=== PATIENT | male | born 1945 | race Caucasian/White ===

== ENCOUNTER 2017-09-24 15:11 | Observation (INO) ==
[2017-09-24] MEDS ORDERED: 0.9 % Sodium Chloride 1,000 ML IVC ONE (15:16)
--- NOTE | 2017-09-24 15:18 | Emergency Department Note ---
Disposition Clinical Impression: Weakness generalized, Near syncope Disposition: Admitted As Inpatient Condition: Fair Syncope HPI - General Chief Complaint: ED Nausea/Vomiting/Diarrhea Stated Complaint: Became Diaphoretic, weak, vomiting Time Seen by Provider: 09/24/17 15:16 Source: patient, EMS Mode of arrival: EMS Limitations: no limitations Nursing Notes Reviewed: Yes Vital Signs Reviewed: Yes - History of Present Illness HPI Narrative: Patient states she had a right shoulder surgery on about September 02. 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 He states he had a feeling of generalized weakness, sweating and then 3 episodes of vomiting with nausea. He felt like he is given a pass out and he was taken to their EMS area. He was helped onto a cot and was transported for evaluation. Seem like he was more somnolent than we can transport but arousable with sternal rub. He denies any episodes like this before. He states his symptoms are worse when he opens his eyes but denies vertiginous symptoms. He now states he is "a little better" and that he is "just weak". He denies that he has been having headache, visual changes or neck pain. He denies chest pain, palpitations or shortness of breath. He denies any abdominal pain other than the feeling of nausea. He has not had recent change in medicines. He denies any focal numbness, tingling or weakness. He has an IV established by EMS and he has received Zofran. An EKG had been performed prior to arrival at 3:10 PM. This showed a sinus bradycardia with a rate of 55 , axis of -5, IL interval 159 and a QT/QTC of 445/434. There is voltage criteria for LVH but no other acute ST or T-wave changes. Ischemia or infarction. This is on my interpretation. Pt Subjective Complaint: felt faint, almost passed out Onset (ago): Just [employer] Prodromal Symptoms: vision changes, lightheaded, nausea/vomiting Context: at rest Injuries Sustained Associated with Event: none Current Symptoms: weakness Treatments prior to arrival: IV fluids Associated trauma secondary to event: No - Related Data Home Medications Medication Instructions Recorded Confirmed Acetaminophen [Tylenol Arthritis] 1,300 mg PO HS 09/02/17 09/02/17 Acetylcysteine [Nac] 600 mg PO BID 09/02/17 09/02/17 Albuterol Sulfate [Albuterol 2 puff IH Q4H PRN 09/02/17 09/02/17 Inhaler] Aspirin/Calcium Carbonate/Mag 325 mg PO DAILY 09/02/17 09/02/17 [Aspirin Buffered 325 mg Tab] Atorvastatin Calcium [Lipitor] 20 mg PO QPM 09/02/17 09/02/17 Budesonide/Formoterol 160/4.5 2 puff IH BID 09/02/17 09/02/17 [Symbicort 160/4.5] Cholecalciferol (D-3) [Vitamin D] 1,000 unit PO DAILY 09/02/17 09/02/17 Citalopram Hydrobromide 20 mg PO DAILY 09/02/17 09/02/17 [Citalopram HBr] Furosemide [Lasix] 20 mg PO BID 09/02/17 09/02/17 Hyoscyamine Sulfate 0.125 mcg PO TID 09/02/17 09/02/17 Ipratropium/Albuterol Neb [Duoneb] 3 ml IH QID PRN 09/02/17 09/02/17 Mecobal/Levomefolat Ca/B6 Phos 1 tab PO DAILY 09/02/17 09/02/17 [Foltanx Tablet] Multivit-Min/FA/Vit K/Lycopene [Hm 1 tab PO DAILY 09/02/17 09/02/17 Mens 50+ Advanced One Daily] [place]-3/Dha/Epa/Fish Oil [Fish Oil 1,000 mg PO DAILY 09/02/17 09/02/17 1,000 mg Softgel] Pantoprazole Sodium [Protonix] 40 mg PO DAILY 09/02/17 09/02/17 Pioglitazone HCl 30 mg PO DAILY 09/02/17 09/02/17 Ramipril [Altace] 10 mg PO DAILY 09/02/17 09/02/17 Triamcinolone Acetonide 1 appl TP BID 09/02/17 09/02/17 clonazePAM [Klonopin] 0.5 mg PO BID 09/02/17 09/02/17 Previous Rx's Medication Instructions Recorded OxyCODONE Immed Rel [Roxicodone 5 5 mg PO Q6HR PRN 7 Days #28 tablet 09/01/17 MG] Allergies Allergy/AdvReac Type Severity Reaction Status Date / Time succinylcholine Allergy See Verified 09/02/17 11:06 [From Anectine] Comments All systems ED: reviewed and negative except as stated. Past Medical History - Past Medical History Attestation: Yes The following information was validated with the patient. Source: patient, old records reviewed, obtained from family, nursing notes reviewed Medical history: Reports: COPD, diabetes, GERD, hyperlipidemia, other Surgical history: Reports: orthopedic, other (Right shoulder), other Psychiatric history: Reports: no psych history - Social History Smoking Status: Never smoker Smokeless Tobacco Status: No Alcohol use: Reports: none Drug use: Reports: none Physical Exam - General Limitations: no limitations General appearance: alert, in no apparent distress - Head Head exam: atraumatic, normocephalic, normal inspection - Eye Eye exam: Present: normal appearance, PERRL (Pupils are 5-6 mm in size and symmetric.), EOMI. Absent: scleral icterus, conjunctival injection, nystagmus - ENT ENT exam: normal exam, normal oropharynx, mucous membranes moist - Neck Neck exam: Present: normal inspection, full ROM, trachea midline. Absent: tenderness, meningismus - Chest Chest inspection: Present: normal inspection, symmetric chest wall rise - Respiratory Respiratory exam: Present: normal lung sounds bilaterally. Absent: respiratory distress, wheezes, prolonged expiratory phase - Cardiovascular Cardiovascular exam: Present: regular rate, normal rhythm, normal heart sounds. Absent: tachycardia - Abdominal Exam Abdominal exam: Present: soft, Non-Tender, normal bowel sounds. Absent: tenderness, distention, guarding, rebound, rigidity - Extremities Exam Extremities exam: Present: normal inspection, full ROM (Right shoulder has a postoperative bandage in place anteriorly. The right shoulder is not move through a full range of motion.), normal capillary refill. Absent: tenderness, pedal edema - Expanded Lower Extremity Exam Neurovascular/Tendon exam: Present: normal capillary refill. Absent: motor deficit, sensory deficit, tendon deficit Gait: not tested/not observed - Neurological Exam Neurological exam: Present: alert, oriented X3, CN II-XII intact, reflexes normal, other (Patient condition rapid altering motion with fingers and toes without difficulty. He has equal strength in all extremities.). Absent: motor sensory deficit - Psychiatric Psychiatric exam: Present: normal mood, flat affect. Absent: agitated, anxious - Skin Skin exam: Present: warm, dry, intact, normal color. Absent: cyanosis, diaphoresis, pallor Course Course Narrative: 1654: Patient's evaluation here is come back unremarkable. I discussed care with the patient and his family. They state he is very active, alert and bright on a daily basis. He now is just sleepy, tired and states he still feels like he could pass out he just opens his eyes or sits up to move around. He states he feels extremely weak. I have added an influenza swab and will contact to Dr. Coe to discuss continued inpatient observation and hydration. The family is in agreement with this plan. Vital Signs Temperature 97 F L 09/24/17 15:15 Pulse Rate 67 09/24/17 15:15 Respiratory Rate 20 09/24/17 15:15 Blood Pressure 143/72 09/24/17 15:15 O2 Sat by Pulse Oximetry 93 09/24/17 15:15 Temperature 98.4 F 09/24/17 23:00 Pulse Rate 61 09/24/17 23:00 Respiratory Rate 18 09/24/17 23:00 Blood Pressure 126/66 09/24/17 23:00 O2 Sat by Pulse Oximetry 97 09/24/17 23:00 Oxygen Delivery Oxygen Delivery Nasal Cannula Syncope - Lab Data Lab results reviewed: Yes I reviewed the patient's lab results. Result diagrams: 09/24/17 15:30 09/24/17 15:30 Lab Results 09/24/17 09/24/17 09/24/17 Range/Units 15:30 15:30 15:30 WBC 9.7 (4.3-11.1) K/mcL RBC 4.22 (4.19-5.50) M/mcL Hgb 13.1 (12.9-16.9) g/dL Hct 40.2 (37.5-50.1) % MCV 95.3 (83.0-100.0) fL MCH 31.0 (28.0-33.3) pg MCHC 32.6 (31.6-35.5) g/dL RDW 14.1 (11.5-14.5) % Plt Count 287 (140-400) K/mcL MPV 10.5 (9.4-12.4) fL Immature Gran % 0.5 (0-4) % Seg Neutrophils % 74.7 % Lymphocytes % 13.4 % Monocytes % 7.7 % Eosinophils % 2.9 % Basophils % 0.8 % Neutrophils # 7.3 (1.6-8.9) K/mcL Lymphocytes # 1.3 (0.6-4.6) K/mcL Monocytes # 0.8 (0.0-1.3) K/mcL Eosinophils # 0.3 (0.0-0.6) K/mcL Basophils # 0.1 (0.0-0.2) K/mcL PT 12.0 (9.4-12.1) Seconds INR 1.1 APTT 30.7 (26.0-36.0) Seconds Sodium 142 (136-145) mEq/L Potassium 4.1 (3.5-4.5) mEq/L Chloride 105 (98-109) mEq/L Carbon Dioxide 28 (19-29) mEq/L BUN 27 H (8-26) mg/dL Creatinine 0.83 (0.72-1.25) mg/dL Est GFR ( Amer) > 60 (> 60) Est GFR (Non-Af Amer) > 60 (> 60) BUN/Creatinine Ratio 33 H (6-26) Glucose 114 H (70-99) mg/dL Calculated Osmolality 300 (280-300) Calcium 9.5 (8.6-10.8) mg/dL Troponin I (0-0.03) ng/mL 09/24/17 Range/Units 15:30 WBC (4.3-11.1) K/mcL RBC (4.19-5.50) M/mcL Hgb (12.9-16.9) g/dL Hct (37.5-50.1) % MCV (83.0-100.0) fL MCH (28.0-33.3) pg MCHC (31.6-35.5) g/dL RDW (11.5-14.5) % Plt Count (140-400) K/mcL MPV (9.4-12.4) fL Immature Gran % (0-4) % Seg Neutrophils % % Lymphocytes % % Monocytes % % Eosinophils % % Basophils % % Neutrophils # (1.6-8.9) K/mcL Lymphocytes # (0.6-4.6) K/mcL Monocytes # (0.0-1.3) K/mcL Eosinophils # (0.0-0.6) K/mcL Basophils # (0.0-0.2) K/mcL PT (9.4-12.1) Seconds INR APTT (26.0-36.0) Seconds Sodium (136-145) mEq/L Potassium (3.5-4.5) mEq/L Chloride (98-109) mEq/L Carbon Dioxide (19-29) mEq/L BUN (8-26) mg/dL Creatinine (0.72-1.25) mg/dL Est GFR ( Amer) (> 60) Est GFR (Non-Af Amer) (> 60) BUN/Creatinine Ratio (6-26) Glucose (70-99) mg/dL Calculated Osmolality (280-300) Calcium (8.6-10.8) mg/dL Troponin I 0.01 (0-0.03) ng/mL - Radiology Data Radiology results reviewed: Yes I reviewed the patient's radiology results. Single view chest x-ray is performed. This does not demonstrate evidence for infiltrate, effusion, pneumothorax, foreign body or heart failure. The cardiac silhouette is normal. I do not see abnormality to the osseous structures of the chest. This is on my interpretation. Three-view x-rays obtained of the hand. This does not demonstrate evidence for fracture, foreign body, subcutaneous air, dislocation or joint space abnormality. No significant soft tissue swelling is seen. This is on my interpretation. Impressions Chest X-Ray 09/24/17 15:16 IMPRESSION: Cardiomegaly without acute disease. D/ / Humberto Cam MD / Humberto Cam MD Interpreting Provider: Humberto Cam MD Head CT 09/24/17 15:16 IMPRESSION: No acute intracranial abnormality. D/ / Earnestine Lux MD / Earnestine Lux MD Interpreting Provider: Earnestine Lux MD
[2017-09-24] MEDS ORDERED: Ondansetron 4 MG/2 ML VIAL IVP ONE (15:37)
[2017-09-24 15:39] LABS: Basophils # 0.1 K/mcL (0.0-0.2); Basophils % 0.8 %; Eosinophils # 0.3 K/mcL (0.0-0.6); Eosinophils % 2.9 %; Hematocrit 40.2 % (37.5-50.1); Hemoglobin 13.1 g/dL (12.9-16.9); Immature Granulocytes % 0.5 % (0-4); Lymphocytes # 1.3 K/mcL (0.6-4.6); Lymphocytes % 13.4 %; Mean Corpuscular HGB Conc 32.6 g/dL (31.6-35.5); Mean Corpuscular Volume 95.3 fL (83.0-100.0); Mean Platelet Volume 10.5 fL (9.4-12.4); Monocytes # 0.8 K/mcL (0.0-1.3); Monocytes % 7.7 %; Neutrophils # 7.3 K/mcL (1.6-8.9); Platelet Count 287 K/mcL (140-400); Red Blood Count 4.22 M/mcL (4.19-5.50); Red Cell Distribution Width 14.1 % (11.5-14.5); Segmented Neutrophils % 74.7 %
[2017-09-24 15:45] LABS: INR 1.1
[2017-09-24 15:48] LABS: Activated Partial Thrombo Time 30.7 Seconds (26.0-36.0)
[2017-09-24 15:55] LABS: BUN/Creatinine Ratio 33 (6-26); Blood Urea Nitrogen 27 mg/dL (8-26); Calcium 9.5 mg/dL (8.6-10.8); Carbon Dioxide 28 mEq/L (19-29); Chloride 105 mEq/L (98-109); Glucose 114 mg/dL (70-99); Osmolality,Calculated 300 (280-300); Potassium 4.1 mEq/L (3.5-4.5); Sodium 142 mEq/L (136-145); eGFR For African Americans > 60 (> 60); eGFR For Non-African Americans > 60 (> 60)
[2017-09-24] MEDS ORDERED: 0.9 % Sodium Chloride 1,000 ML IVC SCH ×2 (17:00→18:50)
[2017-09-24] MEDS ORDERED: *HR* Promethazine 25 MG/ML VIAL IVP ONE (18:28)
[2017-09-24] MEDS ORDERED: D5% in Water 1,000 ML IVC PRN (18:50)
[2017-09-24] MEDS ORDERED: Acetaminophen 325 MG TABLET PO PRN (18:50)
[2017-09-24] MEDS ORDERED: Naloxone 0.4 MG/ML INJ IVP PRN (18:50)
[2017-09-24] MEDS ORDERED: *HR* Dextrose 50 % in Water (Syg) 50 ML SYRINGE IVP PRN (18:50)
[2017-09-24] MEDS ORDERED: Ondansetron 4 MG/2 ML VIAL IVP PRN (18:50)
[2017-09-24] MEDS ORDERED: Dextrose Gel 15 GM PO PRN ×2 (18:50)
[2017-09-25 06:28] VITALS: BP 158/74
[2017-09-25] MEDS ORDERED: Insulin LISPRO 300 UNITS/3 ML VIAL SQ SCH (07:30)
--- NOTE | 2017-09-25 09:38 | Internal Med History&Physical ---
Date of Encounter: 09/25/17 Time of Encounter: 09:05 Assessment and Plan (1) Near syncope Current visit: Yes Status: Acute Etiology uncertain. Symptoms are now completely resolved. He wished to be discharged home. Internal Medicine - H&P: HPI Chief complaint: Diaphoresis and lightheadedness Admitted From: Emergency Dept Plans for Post Hospital Care: Home History of present illness: Mr. Jacobo is a 72 year old male who came to emergency room after he had onset of diaphoresis and lightheadedness while doing usual activities at work. He had 3 episodes of vomiting. There was no chest pain associated. He was evaluated in emergency room and admitted to [facility] floor for ongoing care needs. He states he feels back to his baseline now and wishes to be discharged home. He reports having a previous similar episode approximately one year ago and was told he had "the flu". His cardiovascular history is significant for hypertension. He has occasional dyspnea on exertion. He reports having an ablation procedure done does not know details. He is uncertain if he has a diagnosis of heart failure. He denies DVT or pulmonary embolus. Past Med Surg Social Fam HX - Past Medical History Medical history: COPD, diabetes, GERD, hyperlipidemia, other Psychiatric history: no psych history - Past Surgical History Surgical History: orthopedic, other (Right shoulder), other - Social History Smoking Status: Never smoker Smokeless Tobacco Status: No Alcohol use: none Drug use: none Internal Medicine - H&P: Meds OxyCODONE Immed Rel [Roxicodone 5 MG] 5 mg PO Q6HR PRN 7 Days #28 tablet [Rx] Acetaminophen [Tylenol Arthritis] 1,300 mg PO HS 09/02/17 [History] Acetylcysteine [Nac] 600 mg PO BID 09/02/17 [History] Albuterol Sulfate [Albuterol Inhaler] 2 puff IH Q4H PRN 09/02/17 [History] Aspirin/Calcium Carbonate/Mag [Aspirin Buffered 325 mg Tab] 325 mg PO DAILY [History] Atorvastatin Calcium [Lipitor] 20 mg PO QPM 09/02/17 [History] Budesonide/Formoterol 160/4.5 [Symbicort 160/4.5] 2 puff IH BID 09/02/17 [ History] Cholecalciferol (D-3) [Vitamin D] 1,000 unit PO DAILY 09/02/17 [History] Citalopram Hydrobromide [Citalopram HBr] 20 mg PO DAILY 09/02/17 [History] Furosemide [Lasix] 20 mg PO BID 09/02/17 [History] Hyoscyamine Sulfate 0.125 mcg PO TID 09/02/17 [History] Ipratropium/Albuterol Neb [Duoneb] 3 ml IH QID PRN 09/02/17 [History] Mecobal/Levomefolat Ca/B6 Phos [Foltanx Tablet] 1 tab PO DAILY 09/02/17 [History ] Multivit-Min/FA/Vit K/Lycopene [Hm Mens 50+ Advanced One Daily] 1 tab PO DAILY 09/02/17 [History] [place]-3/Dha/Epa/Fish Oil [Fish Oil 1,000 mg Softgel] 1,000 mg PO DAILY 09/02/17 [History] Pantoprazole Sodium [Protonix] 40 mg PO DAILY 09/02/17 [History] Pioglitazone HCl 30 mg PO DAILY 09/02/17 [History] Ramipril [Altace] 10 mg PO DAILY 09/02/17 [History] Triamcinolone Acetonide 1 appl TP BID 09/02/17 [History] clonazePAM [Klonopin] 0.5 mg PO BID 09/02/17 [History] 3 Allergy/AdvReac Type Severity Reaction Status Date / Time succinylcholine Allergy See Verified 09/02/17 11:06 [From Anectine] Comments All Systems PM: A 10-system review of systems was performed and is negative for pertinent findings except as documented above in the HPI. Review of systems: Gen.: He states his weight has increased approximately 10 pounds in the past year due to fluid retention Cardiovascular: As per history of present illness Respiratory: He is a lifelong nonsmoker but has been told he has COPD. He uses oxygen at bedtime with CPAP for [place]QU[place]. GI: He has GERD but denies disorders of his liver gallbladder or exocrine pancreas : Has history of kidney stones. He denies other kidney bladder prostate disorders Neurologic: He was told he has "mini strokes" in the past. He denies permanent neurologic deficit or seizures Endocrine: He was diagnosed with DM 2 approximately 2001. 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 He denies internal malignancies. Psychiatric: He has anxiety and depression but denies other mental health issues Musk skeletal: He had right reverse total shoulder surgery September 02 with unremarkable surgery and postop course. He has had right carpal tunnel surgery and left knee repair 2. He denies gout or other bone joint or muscle disorders. - Constitutional Vitals: Temp Pulse Resp BP Pulse Ox 98.3 F 67 18 158/74 99 09/25/17 06:27 09/25/17 06:27 09/25/17 06:27 09/25/17 06:27 09/25/17 06:27 Exam: Gen.: He is a well-developed well-nourished male lying in bed who appears in no acute distress. HEENT: Head is atraumatic and normocephalic. Eyes: EOMI. There is no scleral icterus. Mouth: Mucosa is moist. Neck: Supple and nontender. There is no thyromegaly or adenopathy noted. Heart: Regular without murmurs gallops or ectopics Lungs: No wheezes or crackles are heard. Abdomen: Soft and nontender. No masses or guarding are noted. Extremities: There is no cyanosis edema or clubbing noted. Dorsalis pedis and posttibial pulses are 1-2 over 2 bilaterally. He has a surgical dressing in the right anterior shoulder region from recent shoulder surgery. Neurologic: Mental status: He is talkative and a good historian. Cranial nerves : Smile is symmetric. Forehead wrinkles bilaterally. Tongue protrudes midline. EOMI. Motor: There is no pronator drift. Cerebellar: Finger to nose is intact bilaterally. Skin: Warm and dry Internal Med - H&P Results - Labs CBC & Chem 7: 09/24/17 15:30 09/24/17 15:30 - VTE Documentation of Mechanical Device: Graduated compression elastic hosiery
--- NOTE | 2017-09-25 09:47 | Discharge Summary ---
Date of Encounter: 09/25/17 Time of Encounter: 09:05 - Discharge Diagnosis (1) Near syncope Priority: Primary Status: Acute - Discharge Medications Home Medications: OxyCODONE Immed Rel [Roxicodone 5 MG] 5 mg PO Q6HR PRN 7 Days #28 tablet [Rx] Acetaminophen [Tylenol Arthritis] 1,300 mg PO HS 09/02/17 [History] Acetylcysteine [Nac] 600 mg PO BID 09/02/17 [History] Albuterol Sulfate [Albuterol Inhaler] 2 puff IH Q4H PRN 09/02/17 [History] Aspirin/Calcium Carbonate/Mag [Aspirin Buffered 325 mg Tab] 325 mg PO DAILY [History] Atorvastatin Calcium [Lipitor] 20 mg PO QPM 09/02/17 [History] Budesonide/Formoterol 160/4.5 [Symbicort 160/4.5] 2 puff IH BID 09/02/17 [ History] Cholecalciferol (D-3) [Vitamin D] 1,000 unit PO DAILY 09/02/17 [History] Citalopram Hydrobromide [Citalopram HBr] 20 mg PO DAILY 09/02/17 [History] Hyoscyamine Sulfate 0.125 mcg PO TID 09/02/17 [History] Ipratropium/Albuterol Neb [Duoneb] 3 ml IH QID PRN 09/02/17 [History] Mecobal/Levomefolat Ca/B6 Phos [Foltanx Tablet] 1 tab PO DAILY 09/02/17 [History ] Multivit-Min/FA/Vit K/Lycopene [Hm Mens 50+ Advanced One Daily] 1 tab PO DAILY 09/02/17 [History] [place]-3/Dha/Epa/Fish Oil [Fish Oil 1,000 mg Softgel] 1,000 mg PO DAILY 09/02/17 [History] Pantoprazole Sodium [Protonix] 40 mg PO DAILY 09/02/17 [History] Pioglitazone HCl 30 mg PO DAILY 09/02/17 [History] Ramipril [Altace] 10 mg PO DAILY 09/02/17 [History] Triamcinolone Acetonide 1 appl TP BID 09/02/17 [History] clonazePAM [Klonopin] 0.5 mg PO BID 09/02/17 [History] Furosemide [Lasix] 20 mg PO DAILY #0 09/25/17 [Rx] Allergies/Adverse Reactions: 3 Allergy/AdvReac Type Severity Reaction Status Date / Time succinylcholine Allergy See Verified 09/02/17 11:06 [From Anectine] Comments Date of admission: 09/24/17 18:04 Primary care physician: Edelmira Watson CNP - Patient Status Disposition: Home, Self-Care Condition: Fair Overall status at discharge: patient is progressing back to baseline - Discharge Instructions Follow Up With: Edelmira Watson CNP [Primary Care Provider] - 1 week - Diet and Activity Activity: resume usual activities as tolerated Diet: advance to your usual diet Hospital course: Mr. Jacobo is a 72 year old male who came to emergency room after he had onset of diaphoresis and lightheadedness while doing usual activities at work. He had 3 episodes of vomiting. There was no chest pain associated. He was evaluated in emergency room and admitted to [facility] floor for ongoing care needs. Initial orders were written by the emergency room physician. I saw him on September 25 and performed the history physical and discharge. He was started on IV fluids in emergency room. His symptoms had completely resolved by the time I saw him. He tolerated adequate amount of food and fluid intake. He wished to be discharged home which I felt was reasonable. He will reduce Lasix to 20 mg daily since BUN was slightly elevated at 27. He will return to work 2017. He will follow with his PCP within one week. - Time Spent with Patient Total time spent providing and/or coordinating discharge services: - Constitutional Vitals: Temp Pulse Resp BP Pulse Ox 98.3 F 67 18 158/74 99 09/25/17 06:27 09/25/17 06:27 09/25/17 06:27 09/25/17 06:27 09/25/17 06:27 - VTE Documentation of Mechanical Device: Graduated compression elastic hosiery
--- NOTE | 2017-09-25 12:05 | Electrocardiograph Report ---
[place] [id number] Test Date: 2017-09-24 Pat Name: Sachin Jacobo Department: [id number] Room: [facility] Gender: M [employer]: [id number] : 1945 Requested By: Vaughn Lloyd Order Number: [id number] Reading MD: Hector Thomas DO Measurements Intervals [place] Rate: 69 P: 62 MN: 165 QRS: 5 QRSD: 99 T: 29 QT: 428 QTc: 447 Interpretive Statements SINUS RHYTHM Electronically Signed On 09-25-2017 12:04:12 EST by Hector Thomas DO
== END 2017-09-25 10:35 | disposition home or self-care (01) ==
LOC: EMEROOPIK 15:11 → INPPIK 15:11
PROVIDERS: ADMIT Internal Medicine; ATTEND Internal Medicine